=== PATIENT | female | born 1985 | race Caucasian/White ===

== ENCOUNTER 2017-08-15 12:21 | Emergency (ER) | payer OTHER ==
[2017-08-15] MEDS ORDERED: KETOROLAC 60 MG/2 ML VIAL IM STA (13:48)
[2017-08-15] MEDS ORDERED: ONDANSETRON ODT 4 MG TABLET TL STA (14:00)
--- NOTE | 2017-08-15 14:14 | ED Physician Documentation ---
PD HPI URI - Stated complaint Stated Complaint: FEVER,COUGH,CHILLS - Chief complaint Chief Complaint: Fever - History obtained from History obtained from: Patient, Family - History of Present Illness Timing - onset: How many days ago (3) Timing details: Gradual onset, Still present Associated symptoms: Fever, Chills Improves by: Rest Similar symptoms before: No diagnosis Recently seen: Not recently seen - Additional information Additional information: Patient is a 32 year old female who is presenting to the emergency department for cough, cold and uri type symptoms. patient states that it has been going on for the last three days. Patient states that she thought it would go away but it has persisted so she came in for evaluation. Patient states that she has taken tylenol cold and flu and it helped but her symptoms came back. patient denies any sick contacts but she does have family in town visiting. Review of Systems Constitutional: reports: Fever, Chills, Myalgias Eyes: denies: Decreased vision, Discharge Ears: denies: Drainage/discharge Nose: reports: Rhinorrhea / runny nose, Congestion, Sinus pressure / pain Throat: reports: Sore throat Cardiac: denies: Chest pain / pressure, Palpitations Respiratory: reports: Cough. 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 - Present Medications Home Medications: Ambulatory Orders Medication Instructions Recorded Confirmed Ondansetron Odt [Zofran] 4 mg TL Q6H PRN #14 tablet 08/15/17 - Allergies Allergies/Adverse Reactions: Allergies Allergy/AdvReac Type Severity Reaction Status Date / Time codeine Allergy Hallucinati Verified 08/15/17 12:27 ons - Social History Does the pt smoke?: No Smoking Status: Never smoker Does the pt drink ETOH?: No Does the pt have substance abuse?: No - Immunizations Immunizations are current?: Yes PD ED PE NORMAL - Vitals Vital signs reviewed: Yes - General General: Alert and oriented X 3 - HEENT HEENT: Atraumatic, PERRL, Moist mucous membranes - Neck Neck: Supple, no meningeal sign, No JVD - Respiratory Respiratory: No respiratory distress - Abdomen Abdomen: Soft, Non tender, Non distended - Derm Derm: Normal color, Warm and dry, No rash - Extremities Extremities: No deformity, No tenderness to palpate - Neuro Neuro: Alert and oriented X 3, No motor deficit, No sensory deficit, Normal speech Eye Opening: Spontaneous Motor: Obeys Commands Verbal: Oriented GCS Score: 15 PD ED PE EXPANDED - HEENT HEENT: R TM red, L TM red, Nasal congestion, Rhinorrhea, Pharyngeal erythema. 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 NO BETA STREP PRESENT IN CULTURE. Laboratory Tests 08/15/17 12:39 Group A Strep Rapid Negative PD MEDICAL DECISION MAKING - ED course Complexity details: reviewed old records, reviewed results, re-evaluated patient , considered differential, d/w patient, d/w family ED course: Patient was seen and examined at bedside. patient was mildly tachycardic but was treated with oral fluids, and and ibuprofen. while influenza was considered patient had had symptom for over 72 hours so testing was not indicated at this time. Patient and family were given detailed discharge and follow up instructions. patient required no further work up and was stable for discharge with outpatient follow up. Departure - Departure Disposition: 01 Home, Self Care Clinical Impression: Upper respiratory infection Condition: Good Instructions: ED Fever Control, ED Flu Follow-Up: AURORA VYAS [Primary Care Provider] - Within 3 Days Prescriptions: Ondansetron Odt [Zofran] 4 mg TL Q6H PRN #14 tablet PRN Reason: Nausea / Vomiting Comments: Your symptoms today likely viral in nature. they should be self limited meaning they will get better over the next few days. you should alternate between motrin and tylenol for fevers and can take over the counter cold and flu medicine. It is most important that you increase your fluid intake to at least 100oz a day, and get plenty of sleep. You should follow up with your doctor if your symptoms persist for more than the next 3-4 days. You may return to the emergency department at any time for new, worsening or uncontrollable symptoms. Discharge Date/Time: 08/15/17 14:34
[2017-08-15 14:17] VITALS: BP 116/84
== END 2017-08-15 14:34 | disposition home or self-care (01) ==
LOC: ED 12:21
DX: J06.9 Acute upper respiratory infection, unspecified (principal)
CPT/HCPCS: 87070; 87430; 96372; 99283

== ENCOUNTER 2018-07-25 15:09 | Emergency (ER) | payer OTHER ==
[2018-07-25 15:18] VITALS: BP 143/86
[2018-07-25] MEDS ORDERED: IBUPROFEN 600 MG TABLET PO STA (15:20)
--- NOTE | 2018-07-25 15:35 | ED Physician Documentation ---
PD HPI HEENT - Stated complaint Stated Complaint: THROAT PX - Chief complaint Chief Complaint: Heent - History obtained from History obtained from: Patient - History of Present Illness Timing - onset: Yesterday Timing - details: Gradual onset Severity Comments: moderate Location: Throat Improves: Medication Worsens: Swalllowing. No: Noise, Position Associated symptoms: Fever, Congestion. 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 - Present Medications Home Medications: Ambulatory Orders Medication Instructions Recorded Confirmed Bcp 07/25/18 - Allergies Allergies/Adverse Reactions: Allergies Allergy/AdvReac Type Severity Reaction Status Date / Time codeine Allergy Hallucinati Verified 07/25/18 15:17 ons - Social History Does the pt smoke?: No Smoking Status: Never smoker Does the pt drink ETOH?: No Does the pt have substance abuse?: No - Immunizations Immunizations are current?: Yes PD ED PE NORMAL - General General: Alert and oriented X 3, No acute distress - HEENT HEENT: Atraumatic, PERRL, EOMI, Ears normal - Neck Neck: Supple, no meningeal sign - Cardiac Cardiac: RRR - Respiratory Respiratory: No respiratory distress - Derm Derm: Normal color - Extremities Extremities: No deformity - Neuro Neuro: Alert and oriented X 3, Normal speech - Psych Psych: Normal affect PD ED PE EXPANDED - HEENT HEENT: Pharyngeal erythema, Swollen tonsils, Tonsillar exudate, Dentition normal. 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 I discussed with her the findings and plan and she understands and agrees. I discussed warning signs and recommended returning to the emergency department for any worsening or concerns. On clinical exam there is no evidence of peritonsillar abscess or retropharyngeal abscess. Departure - Departure Disposition: 01 Home, Self Care Clinical Impression: Acute viral tonsillitis Condition: Good Instructions: ED Pharyngitis Viral Comments: Please follow-up with primary care in 7-10 days. Please return to the emergency department for worsening symptoms or any concerns. Forms: Activity restrictions
[2018-07-25] MEDS ORDERED: DEXAMETHASONE 10 MG/ML VIAL PO STA (15:39)
[2018-07-25] MEDS ORDERED: CHERRY SYRUP 10 ML UDC PO ONE (15:47)
== END 2018-07-25 16:00 | disposition home or self-care (01) ==
LOC: ED 15:09
DX: J03.80 Acute tonsillitis due to other specified organisms (principal); B97.89 Other viral agents as the cause of diseases classified elsewhere
CPT/HCPCS: 87070; 87430; 99282; 99283; A9270

== ENCOUNTER 2019-01-28 14:34 | Outpatient (CLI) | payer BC, OTHER ==
[2019-01-28 18:49] LABS: BASOPHILS % (AUTO) 0.5 %; EOSINOPHILS # (AUTO) 0.1 10^3/uL (0.0-0.7); EOSINOPHILS % (AUTO) 1.5 %; HGB - HEMOGLOBIN 12.4 g/dL (12.0-16.0); LYMPHOCYTES # (AUTO) 2.4 10^3/uL (1.5-3.5); LYMPHOCYTES % (AUTO) 40.1 %; MEAN CORPUSCULAR HEMOGLOBIN 29.2 pg (27.0-31.0); MEAN CORPUSCULAR HGB CONC 33.9 g/dL (32.0-36.0); MEAN CORPUSCULAR VOLUME 86.1 fL (81.0-99.0); MEAN PLATELET VOLUME 7.7 fL (7.9-10.8); MONOCYTES # (AUTO) 0.4 10^3/uL (0.0-1.0); MONOCYTES % (AUTO) 6.7 %; NEUTROPHILS % (AUTO) 51.2 %; PLT - PLATELET COUNT 277 10^3/uL (130-450); RED BLOOD COUNT 4.26 10^6/uL (4.20-5.40); RED CELL DISTRIBUTION WIDTH 13.9 % (12.0-15.0); WHITE BLOOD COUNT 5.9 x10^3/uL (4.8-10.8)
[2019-01-28 19:09] LABS: ALBUMIN 4.2 g/dL (3.2-5.5); ALBUMIN/GLOBULIN RATIO 1.1 (1.0-2.2); BILIRUBIN,TOTAL 0.5 mg/dL (0.2-1.0); CALCIUM 9.5 mg/dL (8.5-10.3); CREATININE 0.8 mg/dL (0.4-1.0); TOTAL PROTEIN 8.2 g/dL (6.7-8.2)
[2019-01-28 19:44] LABS: HB2 TOTAL 13.2 g/dL; HEMOGLOBIN A1C 0.46 g/dL; HEMOGLOBIN A1C % 5.3 % (4.6-6.2)
== END 2019-01-28 14:35 | disposition home or self-care (01) ==
LOC: LAB.WCP 14:34
PROVIDERS: ATTEND Physician Assistant
DX: Z00.00 Encounter for general adult medical examination without abnormal findings (principal); E28.2 Polycystic ovarian syndrome; Z13.29 Encounter for screening for other suspected endocrine disorder
CPT/HCPCS: 36415; 80053; 83036; 84443; 85025